=== PATIENT | female | born 1945 | race Caucasian/White ===

== ENCOUNTER 2024-10-12 16:56 | Outpatient (REF) | payer BC, SELFPAY ==
[2024-10-12 20:42] LABS: PCR FLU A POSITIVE PCR FLU A (Negative); PCR FLU B Negative PCR FLU B (Negative); PCR RSV Negative PCR RSV (Negative); SARS PCR* Negative SARS-CoV-2 (Negative)
== END 2024-10-12 16:57 | disposition home or self-care (01) ==
LOC: NPINS 16:56
PROVIDERS: PCP Internal Medicine; Referring Provider Nurse Practitioner Gerontology; Visit Provider Nurse Practitioner Gerontology
DX: R53.81 Other malaise (principal)
CPT/HCPCS: 87631